=== PATIENT | female | born 1980 | race Caucasian/White ===

== ENCOUNTER 2018-11-11 16:18 | Emergency (ER) | payer OTHER ==
[~2018-11-11] VITALS: Ht 157.5 cm; Wt 108.9 kg
[~2018-11-11 16:18] MED LIST: GABA600T11 PO; METF-350 PO; TRAM50TA3 PO
[2018-11-11 17:00] VITALS: BP 123/60
--- NOTE | 2018-11-11 17:07 | NUR ---
PATIENT PRESENTS TO ED WITH C/O RT EAR PAIN WITH PAIN WHEN SWALLOWING SINCE SATURDAY. DENIES INJURY OR DISCHARGE. HX; DM, NEUROPATHY . DENIES N/V/D; SKIN IS PINK/WARM/DRY; AAOX4 WITH EVEN AND STEADY GAIT; LUNGS CLEAR BL; HR EVEN AND REGULAR; PT DENIES ANY FEVER, CP, SOB, OR COUGH AT THIS TIME; PATIENT STATES PAIN OF 9/10 AT THIS TIME; VSS; PATIENT POSITIONED FOR COMFORT; HOB ELEVATED; BEDRAILS UP X2; BED DOWN. ER MD MADE AWARE OF PT STATUS.
--- NOTE | 2018-11-11 18:02 | NUR ---
Patient being evaluated by physician at bedside.
--- NOTE | 2018-11-11 19:11 | NUR ---
REPORT GIVEN TO CONCRETE FLOOR INSTALLER NURSE FOR CONTINUE OF CARE.
[2018-11-11 19:42] VITALS: BP 122/67
== END 2018-11-11 19:43 | disposition home or self-care (01) ==
LOC: MED 16:18
DX: H61.21 Impacted cerumen, right ear (principal); J02.9 Acute pharyngitis, unspecified; M54.2 Cervicalgia; E11.9 Type 2 diabetes mellitus without complications; Z88.6 Allergy status to analgesic agent; Z79.84 Long term (current) use of oral hypoglycemic drugs
CPT/HCPCS: 69210; 87081; 99284

== ENCOUNTER 2019-02-28 11:00 | Emergency (ER) | payer SELFPAY ==
[~2019-02-28] VITALS: Ht 157.5 cm; Wt 97.5 kg
[2019-02-28 11:13] VITALS: BP 98/50
--- NOTE | 2019-02-28 11:15 | NUR ---
BIB SELF. AAO X4 C/O ABSCESS UNDER LEFT BREAST X 1 WEEK. PER PT, SHE POPPED THE "PIMPLE" TODAY WITH PUSS AND BLOOD. DISCOLORATION AND SUPERFICIAL SKIN TEAR UNDER L BREAST NOTED. PT STATES NO PAIN, FEVER, N/V. ER TO [facility] PT.
--- NOTE | 2019-02-28 11:15 | NUR ---
Patient ambulated to bed 11. RN evaluating patient at bedside.
--- NOTE | 2019-02-28 11:48 | NUR ---
DR CONTRERAS AT BEDSIDE FOR PT EVAL
[2019-02-28] MEDS ORDERED: CLINDAMYCIN 600 MG/4 ML VIAL IM ONE (11:55)
[2019-02-28] MEDS ORDERED: NEOMYCIN/POLYMYXIN/BACITRACIN 0.9 GM/1 PKT TP ONE (11:55)
--- NOTE | 2019-02-28 12:00 | NUR ---
CONSENT FOR IMMUNIZATION SIGNED BY PT. PT VERBALIZED UNDERSTANDING FOR TDAP VACCINATION.
[2019-02-28 12:45] VITALS: BP 112/54
--- NOTE | 2019-02-28 12:45 | NUR ---
Patient discharged with v/s stable. Written and verbal after care instructions given and explained. Patient alert, oriented and verbalized understanding of instructions. Ambulatory with steady gait. All questions addressed prior to discharge. ID band removed. Patient advised to follow up with PMD. Rx of BACTRIM/CLINDAMYCIN/ATARAX/ BACTROBAN given. Patient educated on indication of medication including possible reaction and side effects. Opportunity to ask questions provided and answered.
[2019-04-29] MEDS ORDERED: GABA300C PO (22:29)
[2019-05-01] MEDS ORDERED: ASCO1CAP75 PO (16:51)
[2019-05-01] MEDS ORDERED: LEVO750T2 PO (16:51)
[2019-05-01] MEDS ORDERED: METR250T2 PO (16:51)
[2019-05-01] MEDS ORDERED: LACT10SO1 PO (16:58)
== END 2019-02-28 12:45 | disposition home or self-care (01) ==
LOC: MED 11:00
DX: N61.0 Mastitis without abscess (principal); E66.01 Morbid (severe) obesity due to excess calories; E11.9 Type 2 diabetes mellitus without complications; Z79.84 Long term (current) use of oral hypoglycemic drugs; Z79.891 Long term (current) use of opiate analgesic; Z79.899 Other long term (current) drug therapy; Z88.6 Allergy status to analgesic agent; Z68.39 Body mass index [BMI] 39.0-39.9, adult
CPT/HCPCS: 81025; 90471; 90715; 96372; 99283; J3490

== ENCOUNTER 2019-09-29 07:42 | Emergency (ER) | payer SELFPAY ==
[~2019-09-29] VITALS: Ht 165.1 cm; Wt 108.9 kg
[~2019-09-29 07:42] MED LIST changes: +ASCO1CAP75 PO; +GABA300C PO; -GABA600T11 PO; +LACT10SO1 PO; +LEVO750T2 PO; +METR250T2 PO; -TRAM50TA3 PO
[2019-09-29 07:45] VITALS: BP 105/69
--- NOTE | 2019-09-29 07:55 | NUR ---
PATIENT AMBULATED WITH STEADY GAIT TO BED 8.
--- NOTE | 2019-09-29 08:08 | NUR ---
39/F TO ED WITH C/O LOWER BACK PAIN. DENIES INJURY OR TRAUMA. DENIES ANY URINARY BURNING/COMPLICATIONS. IN BED FOR MSE.
[2019-09-29] MEDS ORDERED: KETOROLAC 30 MG/ML VIAL IM ONE (08:25)
[2019-09-29 08:48] VITALS: BP 105/69
--- NOTE | 2019-09-29 08:49 | NUR ---
Patient discharged with v/s stable. Written and verbal after care instructions given and explained. Patient alert, oriented and verbalized understanding of instructions. Ambulatory with steady gait. All questions addressed prior to discharge. ID band removed. Patient advised to follow up with PMD. Rx of VALIUM given. Patient educated on indication of medication including possible reaction and side effects. Opportunity to ask questions provided and answered.
== END 2019-09-29 08:49 | disposition home or self-care (01) ==
LOC: MED 07:42
DX: S39.012A Strain of muscle, fascia and tendon of lower back, initial encounter (principal); E11.9 Type 2 diabetes mellitus without complications; Z88.6 Allergy status to analgesic agent; Z79.899 Other long term (current) drug therapy; X50.0XXA Overexertion from strenuous movement or load, initial encounter; Y93.89 Activity, other specified; Y92.89 Other specified places as the place of occurrence of the external cause; Y99.8 Other external cause status
CPT/HCPCS: 96372; 99283; J1885

== ENCOUNTER 2020-12-10 10:04 | Emergency (ER) | payer SELFPAY ==
[~2020-12-10] VITALS: Ht 167.6 cm; Wt 97.5 kg
[~2020-12-10 10:04] MED LIST changes: +LACT-103 PO; -LACT10SO1 PO; +METR-520 PO; -METR250T2 PO
[2020-12-10 10:06] VITALS: BP 117/57
[2020-12-10] MEDS ORDERED: PROM118S5 PO (10:33)
[2020-12-10] MEDS ORDERED: BEN50 PO (10:33)
[2020-12-10 10:41] VITALS: BP 117/57
== END 2020-12-10 10:41 | disposition home or self-care (01) ==
LOC: MED 10:04
DX: R05 Cough (principal); J30.89 Other allergic rhinitis; E11.9 Type 2 diabetes mellitus without complications; Z88.6 Allergy status to analgesic agent; Z79.899 Other long term (current) drug therapy
CPT/HCPCS: 99283

== ENCOUNTER 2021-03-17 11:14 | Emergency (ER) | payer MEDICAID, SELFPAY ==
[~2021-03-17] VITALS: Ht 157.5 cm; Wt 109.3 kg
[~2021-03-17 11:14] MED LIST changes: +BEN50 PO; +PROM118S5 PO
[2021-03-17 11:21] VITALS: BP 108/48
--- NOTE | 2021-03-17 11:28 | NUR ---
Patient ambulated to bed 3. RN evaluating the patient at bedside.
--- NOTE | 2021-03-17 11:36 | NUR ---
Dr. Barry is evaluating the patient at bedside.
--- NOTE | 2021-03-17 12:06 | NUR ---
40/F C/O OF R FLANK PAIN RADIATES TO FRONT X 2 DAY ALONG WITH PAIN/BURNING WHILE URINATING. TENDERNESS UPON PALPATION ON LOWER BACK. PATIENT STATES LAST PERIOD WAS ONLY 3 DAYS "WHICH IS ABDNORMAL FOR HER PERIODS." STATES HAVING UNPROTECTED SEX FOR PAST 4 MONTHS. PMH: TYPE 2 DIABTES ALLERGIES: IBUPROFEN
[2021-03-17 12:21] LABS: APPEARANCE,URINE CLEAR (CLEAR); BILIRUBIN,URINE NEGATIVE (NEGATIVE); BLOOD, URINE NEGATIVE (NEGATIVE); COLOR,URINE YELLOW (YELLOW); LEUKOCYTE ESTERASE ,URINE NEGATIVE (NEGATIVE); NITRITE, URINE NEGATIVE (NEGATIVE); UGLUCOSE NEGATIVE (NEGATIVE)
[2021-03-17] MEDS ORDERED: ACET-2619 PO (12:44)
[2021-03-17] MEDS ORDERED: METF500T PO (12:44)
[2021-03-17 13:14] VITALS: BP 108/48
--- NOTE | 2021-03-17 13:15 | NUR ---
Patient discharged with v/s stable. Written and verbal after care instructions given and explained. Patient alert, oriented and verbalized understanding of instructions. Ambulatory with steady gait. All questions addressed prior to discharge. ID band removed. Patient advised to follow up with PMD. Rx of ACETAMINOPHEN 325 MG AND METFORMIN 500 MG given. Patient educated on indication of medication including possible reaction and side effects. Opportunity to ask questions provided and answered.
== END 2021-03-17 13:15 | disposition home or self-care (01) ==
LOC: MED 11:14
DX: R10.9 Unspecified abdominal pain (principal); E11.9 Type 2 diabetes mellitus without complications; Z88.6 Allergy status to analgesic agent; Z79.899 Other long term (current) drug therapy
CPT/HCPCS: 36415; 81003; 81025; 87491; 99284

== ENCOUNTER 2021-07-08 08:29 | Emergency (ER) | payer SELFPAY ==
[~2021-07-08] VITALS: Ht 157.5 cm; Wt 108.9 kg
[~2021-07-08 08:29] MED LIST changes: +ACET-2619 PO; +METF500T PO
[2021-07-08 08:32] VITALS: BP 129/61
[2021-07-08] MEDS ORDERED: KETOROLAC 60 MG/2 ML VIAL IM ONE ×2 (08:45→08:48)
[2021-07-08] MEDS ORDERED: ACET-8386 PO (08:51)
[2021-07-08 09:07] VITALS: BP 122/72
== END 2021-07-08 09:07 | disposition home or self-care (01) ==
LOC: MED 08:29
DX: M25.561 Pain in right knee (principal); E11.9 Type 2 diabetes mellitus without complications; Z79.899 Other long term (current) drug therapy; Z79.2 Long term (current) use of antibiotics; Z88.6 Allergy status to analgesic agent
CPT/HCPCS: 96372; 99283; J1885

== ENCOUNTER 2021-08-18 14:06 | Emergency (ER) | payer SELFPAY ==
[~2021-08-18] VITALS: Ht 157.5 cm; Wt 108.9 kg
[~2021-08-18 14:06] MED LIST changes: +ACET-8386 PO
[2021-08-18 14:11] VITALS: BP 110/45
--- NOTE | 2021-08-18 14:15 | NUR ---
PT AMBULATED TO ER BED 3 WITH A STEADY GAIT.
--- NOTE | 2021-08-18 14:30 | NUR ---
27 Y/O FEMALE C/O RIGHT FLANK PAIN 06/02 DESCRIBES BURNING NON-RADIATING. PT STATES +DYSURIA, DENIES HEMATURIA, DENIES DISCHARGE. DENIES FEVER/CHILLS. DENIES N/V/D. PMH: DM ALLERGIES: IBUPROFEN
--- NOTE | 2021-08-18 14:37 | NUR ---
Eric nuñez in ED - 08/18/21 at 1438 by [email or web address] FINN VASQUEZ WITH PT FOR FURTHER EAUATION.
--- NOTE | 2021-08-18 14:38 | NUR ---
PA VASQUEZ WITH PT FOR FURTHER EVALUATION.
[2021-08-18] MEDS ORDERED: ACETAMINOPHEN 650 MG/20.3 ML UDC PO ONE (14:40)
--- NOTE | 2021-08-18 14:41 | NUR ---
IV ESTABLISHED TO RIGHT HAND 20G, GOOD BLOOD RETURN. COLLECTED BLOOD WALKED TO LAB.
--- NOTE | 2021-08-18 14:57 | NUR ---
PT TAKEN TO CT VIA W/C.
--- NOTE | 2021-08-18 15:09 | NUR ---
PT TAKEN TO ER BED 2 VIA W/C.
[2021-08-18 15:15] LABS: APPEARANCE,URINE CLEAR (CLEAR); BILIRUBIN,URINE NEGATIVE (NEGATIVE); BLOOD, URINE TRACE-I (NEGATIVE); COLOR,URINE YELLOW (YELLOW); LEUKOCYTE ESTERASE ,URINE 1+ (NEGATIVE); NITRITE, URINE NEGATIVE (NEGATIVE); UGLUCOSE NEGATIVE (NEGATIVE)
[2021-08-18 15:18] LABS: BASOPHILS # (AUTO) 0.1 K/uL (0.00-0.22); BASOPHILS % (AUTO) 0.4 % (0.0-2.0); EOSINOPHILS # (AUTO) 0.4 K/uL (0-0.4); EOSINOPHILS % (AUTO) 2.6 % (0.0-4.0); HEMATOCRIT 38.3 % (36-48); HEMOGLOBIN 12.7 g/dL (12.0-16.0); LYMPHOCYTES # (AUTO) 2.8 K/uL (2.5-16.5); LYMPHOCYTES % (AUTO) 16.4 % (20.5-51.1); MEAN CORPUSCULAR HEMOGLOBIN 29 pg (27-31); MEAN CORPUSCULAR HGB CONC 33 g/dL (33-37); MONOCYTES # (AUTO) 1.1 K/uL (0.8-1.0); MONOCYTES % (AUTO) 6.5 % (1.7-9.3); NEUTROPHILS # (AUTO) 12.8 K/uL (1.8-7.7); NEUTROPHILS % (AUTO) 74.1 % (42.2-75.2); PLATELET COUNT (AUTO) 354 K/uL (140-450); WHITE BLOOD COUNT (AUTO) 17.2 K/uL (4.8-10.8)
[2021-08-18 15:38] LABS: ANION GAP 13.6 (8-16); CREATININE 0.5 mg/dL (0.6-1.3); POTASSIUM 4.6 mmol/L (3.5-5.1); TOTAL BILIRUBIN 0.4 mg/dL (0.0-1.0)
[2021-08-18 16:11] LABS: COARSE GRANULAR CASTS,URINE 0-10 /LPF (None Seen); RBC,URINE 0-5 /HPF (0-5)
--- NOTE | 2021-08-18 16:19 | NUR ---
PT RESTING IN BED, HOB ELEVATED FOR COMFORT, VSS, WILL CONTINUE TO MONITOR.
[2021-08-18] MEDS ORDERED: ACET-8386 PO (16:58)
[2021-08-18] MEDS ORDERED: AMOX-1230 PO (16:58)
[2021-08-18] MEDS ORDERED: DOCU-299 PO (16:58)
[2021-08-18] MEDS ORDERED: NITR-141 PO (16:58)
[2021-08-18 17:09] VITALS: BP 124/64
--- NOTE | 2021-08-18 17:09 | NUR ---
Patient discharged with v/s stable. Written and verbal after care instructions given FOR DIVERTICULITIS AND URINARY TRACT INFECTION and explained. Patient alert, oriented and verbalized understanding of instructions. Ambulatory with steady gait. All questions addressed prior to discharge. ID band removed. Patient advised to follow up with PMD. Rx of AUGMENTIN, COLACE, AND MACRODANTIN given. Patient educated on indication of medication including possible reaction and side effects. Opportunity to ask questions provided and answered.
== END 2021-08-18 17:09 | disposition home or self-care (01) ==
LOC: MED 14:06
DX: K57.92 Diverticulitis of intestine, part unspecified, without perforation or abscess without bleeding (principal); N39.0 Urinary tract infection, site not specified; D72.829 Elevated white blood cell count, unspecified; E11.9 Type 2 diabetes mellitus without complications; Z79.4 Long term (current) use of insulin; Z79.899 Other long term (current) drug therapy
CPT/HCPCS: 36415; 80053; 81001; 81025; 83690; 85025; 87086; 99284

== ENCOUNTER 2022-02-26 17:13 | Emergency (ER) | payer SELFPAY ==
[~2022-02-26] VITALS: Ht 157.5 cm; Wt 112.0 kg
[~2022-02-26 17:13] MED LIST changes: +AMOX-1230 PO; +DOCU-299 PO; +METF-346 PO; -METF500T PO; +NITR-141 PO
[2022-02-26 17:37] VITALS: BP 136/79
[2022-02-26] MEDS ORDERED: ACETAMINOPHEN EXTRA STRENGTH 500 MG TAB PO ONE (19:35)
--- NOTE | 2022-02-26 19:39 | NUR ---
pt assessmnet completed by verena. no nursing interventions required at this time.
[2022-02-26] MEDS ORDERED: CYCL-711 PO (19:46)
[2022-02-26] MEDS ORDERED: ACET-10509 PO (19:46)
[2022-02-26] MEDS ORDERED: LORA10TA60 PO (19:46)
[2022-02-26] MEDS ORDERED: HYDR28CR38 TP (19:46)
[2022-02-26] MEDS ORDERED: LID5T TP (19:46)
[2022-02-26 21:07] VITALS: BP 136/79
--- NOTE | 2022-02-26 21:07 | NUR ---
Patient discharged with v/s stable. Written and verbal after care instructions given and explained. Patient alert, oriented and verbalized understanding of instructions. Ambulatory with steady gait. All questions addressed prior to discharge. ID band removed. Patient advised to follow up with PMD. Rx of tylenol, flexeril, cortizone, lidocaine, loratadine given. Patient educated on indication of medication including possible reaction and side effects. Opportunity to ask questions provided and answered.
== END 2022-02-26 21:07 | disposition home or self-care (01) ==
LOC: MED 17:13
DX: M54.50 Low back pain, unspecified (principal); L25.9 Unspecified contact dermatitis, unspecified cause; E11.9 Type 2 diabetes mellitus without complications; Z79.84 Long term (current) use of oral hypoglycemic drugs; Z79.899 Other long term (current) drug therapy; Z88.6 Allergy status to analgesic agent
CPT/HCPCS: 81002; 81025; 99283

== ENCOUNTER 2022-04-18 12:39 | Emergency (ER) | payer SELFPAY ==
[~2022-04-18] VITALS: Ht 157.5 cm; Wt 112.0 kg
[~2022-04-18 12:39] MED LIST changes: +ACET-10509 PO; +CYCL-711 PO; +HYDR28CR38 TP; +LID5T TP; +LORA10TA60 PO
[2022-04-18 13:30] VITALS: BP 142/53
--- NOTE | 2022-04-18 13:37 | NUR ---
COVID DEEP SWAB DONE.
--- NOTE | 2022-04-18 14:00 | NUR ---
NO NURSING INTERVENTIONS NEEDED. SEEN & TREATED BY FINN VASQUEZ.
[2022-04-18] MEDS ORDERED: LORA10TA19 PO (14:27)
[2022-04-18] MEDS ORDERED: METF-350 PO (14:27)
[2022-04-18] MEDS ORDERED: DEXT118S25 PO (14:27)
[2022-04-18 14:50] VITALS: BP 142/53
--- NOTE | 2022-04-18 14:50 | NUR ---
Patient discharged with v/s stable. Written and verbal after care instructions given and explained. Patient alert, oriented and verbalized understanding of instructions. Ambulatory with steady gait. All questions addressed prior to discharge. ID band removed. Patient advised to follow up with PMD. Rx of CLARITIN, METFORMIN, DIABETIC TUSSIN DM LIQIID given. Patient educated on indication of medication including possible reaction and side effects. Opportunity to ask questions provided and answered.
== END 2022-04-18 14:50 | disposition home or self-care (01) ==
LOC: MED 12:39
DX: J06.9 Acute upper respiratory infection, unspecified (principal); Z20.822 Contact with and (suspected) exposure to COVID-19; E11.9 Type 2 diabetes mellitus without complications; Z76.0 Encounter for issue of repeat prescription; Z79.4 Long term (current) use of insulin; Z79.899 Other long term (current) drug therapy; Z88.6 Allergy status to analgesic agent
CPT/HCPCS: 99283

== ENCOUNTER 2022-11-26 15:49 | Emergency (ER) | payer MEDICAID ==
[~2022-11-26] VITALS: Ht 157.5 cm; Wt 108.9 kg
[~2022-11-26 15:49] MED LIST changes: -ACET-8386 PO; +ACET-8905 PO; +DEXT118S25 PO; +LORA10TA19 PO
[2022-11-26 16:13] VITALS: BP 101/71
[2022-11-26] MEDS ORDERED: METF-713 PO (16:33)
--- NOTE | 2022-11-26 16:37 | NUR ---
42 Y/O FEMALE BIB SELF PRESENTS TO ED FOR MED REFILL FOR METFORMIN 850MG OD. NO MEDS X1 WEEK. BS 97 IN TRIAGE. REQUESTING MEDS FOR CHRONIC BILATERAL KNEE PAIN PMH: DM2
--- NOTE | 2022-11-26 16:39 | NUR ---
Patient discharged with v/s stable. Written and verbal after care instructions ABOUT MED REFILL given and explained. Patient alert, oriented and verbalized understanding of instructions. Ambulatory with steady gait. All questions addressed prior to discharge. ID band removed. Patient advised to follow up with PMD. Rx of METFORMIN given. Patient educated on indication of medication including possible reaction and side effects. Opportunity to ask questions provided and answered.
== END 2022-11-26 16:39 | disposition home or self-care (01) ==
LOC: MED 15:49
DX: E11.9 Type 2 diabetes mellitus without complications (principal); M79.671 Pain in right foot; M79.672 Pain in left foot; Z76.0 Encounter for issue of repeat prescription; Z79.899 Other long term (current) drug therapy; Z79.891 Long term (current) use of opiate analgesic; Z79.2 Long term (current) use of antibiotics; Z88.6 Allergy status to analgesic agent
CPT/HCPCS: 99281

== ENCOUNTER 2023-06-09 11:27 | Emergency (ER) | payer OTHER ==
[~2023-06-09] VITALS: Ht 157.5 cm; Wt 111.1 kg
[~2023-06-09 11:27] MED LIST changes: +METF-713 PO
[2023-06-09 11:44] VITALS: BP 105/55; PULSE 58; RESP 16; TEMP 97.6; O2SAT 96
[2023-06-09] MEDS ORDERED: METF-713 PO (12:26)
[2023-06-09] MEDS ORDERED: CEPH-588 PO (12:26)
== END 2023-06-09 12:43 | disposition home or self-care (01) ==
LOC: MED 11:27
DX: L02.224 Furuncle of groin (principal); E11.9 Type 2 diabetes mellitus without complications; Z88.6 Allergy status to analgesic agent; Z79.899 Other long term (current) drug therapy; Z79.84 Long term (current) use of oral hypoglycemic drugs
CPT/HCPCS: 99283

== ENCOUNTER 2023-07-06 12:18 | Emergency (ER) | payer OTHER ==
[~2023-07-06] VITALS: Ht 157.5 cm; Wt 108.9 kg
[~2023-07-06 12:18] MED LIST changes: +CEPH-588 PO
[2023-07-06 12:34] VITALS: BP 103/44; PULSE 74; RESP 18; TEMP 98.6; O2SAT 96
[2023-07-06] MEDS ORDERED: KETOROLAC 30 MG/ML VIAL IM ONE (12:50)
[2023-07-06] MEDS ORDERED: ACETAMINOPHEN 325 MG TAB PO ONE (13:05)
[2023-07-06 13:11] LABS: BASOPHILS # (AUTO) 0.1 K/uL (0.00-0.22); BASOPHILS % (AUTO) 0.4 % (0.0-2.0); EOSINOPHILS # (AUTO) 0.3 K/uL (0-0.4); HEMATOCRIT 39.7 % (36-48); HEMOGLOBIN 13.1 g/dL (12.0-16.0); LYMPHOCYTES # (AUTO) 2.5 K/uL (2.5-16.5); LYMPHOCYTES % (AUTO) 15.3 % (20.5-51.1); MEAN CORPUSCULAR HEMOGLOBIN 29 pg (27-31); MEAN CORPUSCULAR HGB CONC 33 g/dL (33-37); MEAN CORPUSCULAR VOLUME 87.3 fL (80-94); MONOCYTES % (AUTO) 6.3 % (1.7-9.3); NEUTROPHILS # (AUTO) 12.4 K/uL (1.8-7.7); PLATELET COUNT (AUTO) 373 K/uL (140-450); RED BLOOD CELL COUNT(AUTO) 4.54 MIL/uL (4.20-5.40); RED CELL DISTRIBUTION WIDTH 13.7 % (11.6-13.7); WHITE BLOOD COUNT (AUTO) 16.3 K/uL (4.8-10.8)
[2023-07-06 13:24] LABS: ANION GAP 10.1 (8-16); CALCIUM 8.7 mg/dL (8.5-10.1); CARBON DIOXIDE 29.5 mmol/L (21-32); CREATININE 0.8 mg/dL (0.6-1.3); POTASSIUM 3.6 mmol/L (3.5-5.1); TOTAL BILIRUBIN 0.9 mg/dL (0.0-1.0); TOTAL PROTEIN, SERUM 7.7 g/dL (6.4-8.2)
[2023-07-06 13:29] LABS: APPEARANCE,URINE CLEAR (CLEAR); BILIRUBIN,URINE 2+ (NEGATIVE); BLOOD, URINE NEGATIVE (NEGATIVE); COLOR,URINE YELLOW (YELLOW); LEUKOCYTE ESTERASE ,URINE 1+ (NEGATIVE); NITRITE, URINE POSITIVE (NEGATIVE); PH,URINE 6.5 (5.0-9.0); PROTEIN,URINE 1+ (NEGATIVE); UGLUCOSE NEGATIVE (NEGATIVE)
[2023-07-06 13:50] LABS: BACTERIA,URINE >30 (MANY) /HPF (None Seen); ICTOTEST NEGATIVE (NEGATIVE); MUCUS,URINE None Seen /LPF (None Seen); RBC,URINE 0-5 /HPF (0-5); SQUAMOUS EPITHELIAL CELL,UR 4-10 (MOD) /LPF (0-3 (FEW)); TRICHOMONAS,URINE None Seen /HPF (None Seen); WHITE BLOOD CELL CASTS,URINE None Seen /LPF (None Seen); YEAST,URINE None Seen /HPF (None Seen)
[2023-07-06] MEDS ORDERED: CIPR500T4 PO (14:25)
== END 2023-07-06 16:01 | disposition home or self-care (01) ==
LOC: MED 12:18
DX: N12 Tubulo-interstitial nephritis, not specified as acute or chronic (principal); E11.9 Type 2 diabetes mellitus without complications; Z79.899 Other long term (current) drug therapy; Z79.2 Long term (current) use of antibiotics; Z88.6 Allergy status to analgesic agent
CPT/HCPCS: 36415; 76705; 80053; 81001; 81025; 83690; 85025; 87086; 99284

== ENCOUNTER 2023-07-09 09:24 | Emergency (ER) | payer OTHER ==
[~2023-07-09] VITALS: Ht 157.5 cm; Wt 108.9 kg
[~2023-07-09 09:24] MED LIST changes: +CIPR500T4 PO
[2023-07-09 09:32] VITALS: BP 132/89; PULSE 80; RESP 18; TEMP 97.8; O2SAT 98
[2023-07-09] MEDS ORDERED: BEN10 PO (11:18)
[2023-07-09 11:30] VITALS: BP 132/89; PULSE 80; RESP 18; TEMP 97.8; O2SAT 98
== END 2023-07-09 11:30 | disposition home or self-care (01) ==
LOC: MED 09:24
DX: R10.9 Unspecified abdominal pain (principal); E11.9 Type 2 diabetes mellitus without complications; Z79.1 Long term (current) use of non-steroidal anti-inflammatories (NSAID); Z79.899 Other long term (current) drug therapy; Z79.4 Long term (current) use of insulin
CPT/HCPCS: 99283

== ENCOUNTER 2023-10-12 08:55 | Emergency (ER) | payer OTHER ==
[~2023-10-12] VITALS: Ht 157.5 cm; Wt 102.5 kg
[~2023-10-12 08:55] MED LIST changes: +BEN10 PO
[2023-10-12 08:58] VITALS: BP 117/81; PULSE 60; RESP 18; TEMP 97.3; O2SAT 96
[2023-10-12] MEDS ORDERED: DOXY-745 PO (09:38)
[2023-10-12] MEDS ORDERED: IBUP-1842 PO (09:38)
== END 2023-10-12 09:43 | disposition home or self-care (01) ==
LOC: MED 08:55
DX: L73.2 Hidradenitis suppurativa (principal); L02.415 Cutaneous abscess of right lower limb; E11.9 Type 2 diabetes mellitus without complications; Z79.899 Other long term (current) drug therapy; Z79.1 Long term (current) use of non-steroidal anti-inflammatories (NSAID); Z79.2 Long term (current) use of antibiotics; Z88.6 Allergy status to analgesic agent
CPT/HCPCS: 99283

== ENCOUNTER 2023-12-11 10:13 | Emergency (ER) | payer OTHER ==
[~2023-12-11] VITALS: Ht 157.5 cm; Wt 99.8 kg
[~2023-12-11 10:13] MED LIST changes: +DOXY-745 PO; +IBUP-1842 PO
[2023-12-11 10:20] VITALS: BP 102/62; PULSE 90; RESP 16; TEMP 98.2; O2SAT 96
[2023-12-11] MEDS ORDERED: SULF-59 PO (12:30)
== END 2023-12-11 12:39 | disposition home or self-care (01) ==
LOC: MED 10:13
DX: L02.31 Cutaneous abscess of buttock (principal); E11.9 Type 2 diabetes mellitus without complications; Z79.1 Long term (current) use of non-steroidal anti-inflammatories (NSAID); Z79.4 Long term (current) use of insulin; Z79.899 Other long term (current) drug therapy
CPT/HCPCS: 99283

== ENCOUNTER 2024-02-18 08:37 | Emergency (ER) | payer OTHER ==
[~2024-02-18] VITALS: Ht 157.5 cm; Wt 102.1 kg
[~2024-02-18 08:37] MED LIST changes: +DOXY-22 PO; -DOXY-745 PO; -LACT-103 PO; +LACT-191 PO; +SULF-59 PO
[2024-02-18 08:45] VITALS: BP 126/53; PULSE 58; RESP 18; TEMP 97.1; O2SAT 96
[2024-02-18 09:04] VITALS: O2SAT 96
[2024-02-18 09:11] LABS: APPEARANCE,URINE CLEAR (CLEAR); BILIRUBIN,URINE NEGATIVE (NEGATIVE); BLOOD, URINE NEGATIVE (NEGATIVE); COLOR,URINE YELLOW (YELLOW); LEUKOCYTE ESTERASE ,URINE NEGATIVE (NEGATIVE); NITRITE, URINE NEGATIVE (NEGATIVE); PROTEIN,URINE NEGATIVE (NEGATIVE); UGLUCOSE NEGATIVE (NEGATIVE); UROBILINOGEN,URINE 0.2 EU/dL (0.2 - 1)
[2024-02-18] MEDS ORDERED: MIRABULK PO (09:51)
[2024-02-18] MEDS ORDERED: NA P133N1 RC (09:51)
== END 2024-02-18 10:07 | disposition home or self-care (01) ==
LOC: MED 08:37
DX: K59.00 Constipation, unspecified (principal); E11.9 Type 2 diabetes mellitus without complications; Z79.84 Long term (current) use of oral hypoglycemic drugs; Z79.1 Long term (current) use of non-steroidal anti-inflammatories (NSAID); Z79.2 Long term (current) use of antibiotics; Z79.899 Other long term (current) drug therapy; Z88.6 Allergy status to analgesic agent
CPT/HCPCS: 81003; 81025; 99283

== ENCOUNTER 2024-05-06 08:55 | Emergency (ER) | payer OTHER ==
[~2024-05-06] VITALS: Ht 157.5 cm; Wt 107.1 kg
[~2024-05-06 08:55] MED LIST changes: +MIRABULK PO; +NA P133N1 RC
[2024-05-06 09:11] VITALS: BP 113/86; PULSE 60; RESP 18; TEMP 97.3; O2SAT 96
[2024-05-06] MEDS ORDERED: CEPH-588 PO (12:39)
[2024-05-06 12:50] VITALS: BP 113/86; PULSE 60; RESP 18; TEMP 97.3; O2SAT 96
== END 2024-05-06 12:50 | disposition home or self-care (01) ==
LOC: MED 08:55
DX: L02.31 Cutaneous abscess of buttock (principal); L03.317 Cellulitis of buttock; E11.9 Type 2 diabetes mellitus without complications; Z79.899 Other long term (current) drug therapy; Z88.6 Allergy status to analgesic agent
CPT/HCPCS: 99283